=== PATIENT | male | born 1965 | race Caucasian/White ===

== ENCOUNTER 2016-11-21 13:40 | Emergency (ER) | payer OTHER ==
[~2016-11-21] VITALS: Ht 180.3 cm; Wt 122.7 kg
[~2016-11-21 13:40] MED LIST: ARIP15TA3 PO; BUPR-93 PO; MIRT15 PO
[2016-11-21] MEDS ORDERED: LISI-660 PO (13:58)
[2016-11-21] MEDS ORDERED: GABA-529 PO (13:58)
[2016-11-21] MEDS ORDERED: GLIP10 PO (13:58)
[2016-11-21] MEDS ORDERED: SIMV5TAB6 PO (13:58)
[2016-11-21] MEDS ORDERED: IBUP-1547 PO (13:58)
[2016-11-21] MEDS ORDERED: METF500T4 PO (13:58)
[2016-11-21 14:01] LABS: GLUCOSE,POINT OF CARE 139 MG/DL (70-110)
[2016-11-21] MEDS ORDERED: HYDROCODONE/ACETAMINOPHEN 5-325 MG TABLET PO ONE (15:30)
[2016-11-21 16:19] VITALS: BP 121/81
== END 2016-11-21 16:30 | disposition home or self-care (01) ==
LOC: EMS 13:41
DX: S33.5XXA Sprain of ligaments of lumbar spine, initial encounter (principal); M54.5 Low back pain; F31.9 Bipolar disorder, unspecified; E11.9 Type 2 diabetes mellitus without complications; I10 Essential (primary) hypertension; E78.00 Pure hypercholesterolemia, unspecified; Z88.0 Allergy status to penicillin; Z88.1 Allergy status to other antibiotic agents; Z88.6 Allergy status to analgesic agent; X58.XXXA Exposure to other specified factors, initial encounter; Y93.89 Activity, other specified; Y92.9 Unspecified place or not applicable; Y99.9 Unspecified external cause status
CPT/HCPCS: 82962; 99283

== ENCOUNTER 2017-09-13 12:21 | Emergency (ER) | payer OTHER ==
[~2017-09-13] VITALS: Ht 180.3 cm; Wt 100.0 kg
[~2017-09-13 12:21] MED LIST changes: +ARIP15TA2 PO; -ARIP15TA3 PO; +GABA-529 PO; +GLIP10 PO; +IBUP-2071 PO; +LISI-660 PO; +METF500T4 PO; +SIMV5TAB6 PO
[2017-09-13 12:42] LABS: GLUCOSE,POINT OF CARE 189 MG/DL (70-110)
[2017-09-13] MEDS ORDERED: OMEP40CA12 PO (12:43)
[2017-09-13] MEDS ORDERED: HYDR25TA PO (12:43)
[2017-09-13] MEDS ORDERED: SIMV-259 PO (12:43)
[2017-09-13] MEDS ORDERED: GABA-533 PO (12:43)
[2017-09-13] MEDS ORDERED: LISI-662 PO (12:43)
[2017-09-13] MEDS ORDERED: ONDANSETRON HCL 4 MG/2 ML VIAL IVP ONE (14:30)
[2017-09-13] MEDS ORDERED: MORPHINE SULFATE 4 MG/ML SYRINGE IVP ONE (14:30)
[2017-09-13] MEDS ORDERED: SODIUM CHLORIDE 0.9% 1,000 ML IV ONE ×2 (14:30→15:45)
[2017-09-13 15:05] LABS: BASOPHILS % (AUTO) 0.1 % (0.0-2.0); EOSINOPHILS % (AUTO) 0.1 % (1.0-6.0); HEMATOCRIT 41.9 % (41-53); HEMOGLOBIN 13.9 g/dL (13.5-17.5); LYMPHOCYTES % (AUTO) 10.1 % (22.0-44.0); MEAN CORPUSCULAR HEMOGLOBIN 29.9 pg (26.0-34.0); MEAN CORPUSCULAR HGB CONC 33.2 G/dL (31.0-37.0); MEAN CORPUSCULAR VOLUME 90 fL (80-100); MONOCYTES # (AUTO) 0.2 K/uL (0.1-1.0); MONOCYTES % (AUTO) 1.9 % (2.0-9.0); NEUTROPHILS # (AUTO) 8.3 K/uL (1.8-7.7); PLATELET COUNT (AUTO) 360 K/uL (150-450); RED BLOOD CELL COUNT(AUTO) 4.65 MIL/uL (4.50-5.90); RED CELL DISTRIBUTION WIDTH 14.1 % (11.5-14.5); WHITE BLOOD COUNT (AUTO) 9.5 K/uL (4.5-11.0)
[2017-09-13 15:14] LABS: NEUTROPHILS % (AUTO) 87.8 % (40.0-70.0)
[2017-09-13 15:21] LABS: ANION GAP 11 mmol/L (8-16); CALCIUM, TOTAL 9.8 mg/dL (8.8-10.5); CARBON DIOXIDE 29 mmol/L (22-29); CHLORIDE 99 mmol/L (98-107); CREATININE 0.94 mg/dL (0.60-1.30); GLOMERULAR FILTR. RATE CALC > 60 mL/min (>60); POTASSIUM 3.1 mmol/L (3.5-5.1); SODIUM SERUM 139 mmol/L (136-145); UREA NITROGEN, BLOOD 11 mg/dL (7-18)
[2017-09-13 15:28] LABS: ALANINE AMINOTRANSFERASE 17 U/L (12-78); ALBUMIN 3.8 g/dL (3.4-5.0); ASPARTATE AMINOTRANSFERASE 13 U/L (15-37); BILIRUBIN,TOTAL 0.4 mg/dL (0.1-1.0); TOTAL PROTEIN, SERUM 8.5 g/dL (6.4-8.2)
[2017-09-13 15:33] LABS: LACTIC ACID 2.2 mmol/L (0.4-2.0)
[2017-09-13] MEDS ORDERED: POTASSIUM CHLORIDE 20 MEQ ER TABLET PO ONE (15:45)
[2017-09-13] MEDS ORDERED: DICYCLOMINE HCL 20 MG TABLET PO ONE (15:45)
[2017-09-13] MEDS ORDERED: METOCLOPRAMIDE HCL 5 MG/ML 2 ML VIAL IVP ONE (15:45)
[2017-09-13] MEDS ORDERED: DiphenhydrAMINE HCL 50 MG/ML VIAL IVP ONE (15:45)
[2017-09-13 15:49] LABS: RBC MORPHOLOGY COMMENT NORMAL RBC MORPH
[2017-09-13] MEDS ORDERED: IOVERSOL 320 MG/ML 100 ML VIAL ONE (15:51)
[2017-09-13 16:06] VITALS: BP 133/68
[2017-09-13 17:07] LABS: REFLEX LACTIC ACID? YES YES
== END 2017-09-13 17:37 | disposition home or self-care (01) ==
LOC: EMS 12:22
DX: K29.70 Gastritis, unspecified, without bleeding (principal); E87.6 Hypokalemia; E11.9 Type 2 diabetes mellitus without complications; E78.00 Pure hypercholesterolemia, unspecified; F17.210 Nicotine dependence, cigarettes, uncomplicated; Z88.1 Allergy status to other antibiotic agents; Z88.6 Allergy status to analgesic agent; Z88.0 Allergy status to penicillin
CPT/HCPCS: 36415; 74177; 80053; 82962; 83605; 83690; 84484; 85025; 93005; 96361; 96374; 96375; 99285; J1200; J2270; J2405; J2765; J7030; Q9967

== ENCOUNTER 2018-05-02 00:49 | Emergency (ER) | payer OTHER ==
[~2018-05-02] VITALS: Ht 180.3 cm; Wt 86.4 kg
[~2018-05-02 00:49] MED LIST changes: -GABA-529 PO; +GABA-533 PO; +HYDR25TA PO; -LISI-660 PO; +LISI-662 PO; -METF500T4 PO; +METF500T6 PO; +OMEP40CA12 PO; +SIMV-259 PO; -SIMV5TAB6 PO
[2018-05-02 01:14] LABS: GLUCOSE,POINT OF CARE 145 MG/DL (70-110)
[2018-05-02] MEDS ORDERED: ONDANSETRON HCL 4 MG/2 ML VIAL IM ONE (04:15)
[2018-05-02] MEDS ORDERED: KETOROLAC TROMETHAMINE 60 MG/2 ML VIAL IM ONE (04:15)
[2018-05-02] MEDS ORDERED: FentaNYL CITRATE-PF 100 MCG/2 ML VIAL IM ONE (04:15)
[2018-05-02] MEDS ORDERED: BUPIVACAINE HCL/PF 0.25% 10 ML VIAL INJ ONE (04:30)
[2018-05-02] MEDS ORDERED: BACITRACIN 0.9 GM PACKET OINTMENT TP ONE (04:30)
[2018-05-02 05:09] VITALS: BP 142/85
== END 2018-05-02 06:04 | disposition home or self-care (01) ==
LOC: EMS 00:50
DX: S02.32XA Fracture of orbital floor, left side, initial encounter for closed fracture (principal); S22.32XA Fracture of one rib, left side, initial encounter for closed fracture; S01.112A Laceration without foreign body of left eyelid and periocular area, initial encounter; H11.32 Conjunctival hemorrhage, left eye; I10 Essential (primary) hypertension; E11.9 Type 2 diabetes mellitus without complications; E78.00 Pure hypercholesterolemia, unspecified; F17.210 Nicotine dependence, cigarettes, uncomplicated; Z88.0 Allergy status to penicillin; Z88.1 Allergy status to other antibiotic agents; Z88.6 Allergy status to analgesic agent; W22.8XXA Striking against or struck by other objects, initial encounter; Y93.89 Activity, other specified; Y92.89 Other specified places as the place of occurrence of the external cause; Y99.8 Other external cause status
CPT/HCPCS: 12013; 70450; 70486; 71100; 82962; 96372; 99284; 99406; J1885; J2405; J3010; J3490